=== PATIENT | male | born 1960 | race Caucasian/White ===

== ENCOUNTER 2016-11-04 16:21 | Emergency (ER) | payer OTHER ==
[~2016-11-04] VITALS: Ht 175.3 cm; Wt 88.5 kg
[~2016-11-04 16:21] MED LIST: AMLODIPINE BESY10 M1 PO; ASPIRIN EC81 M1 PO; CARVEDILOL12.5 M1 PO; CITALOPRAM HBR20 MG PO; CYCLOBENZAPRINE10 M1 PO; GEMFIBROZIL600 MG PO; LISINOPRIL40 M1 PO; LYRICA25 M1 PO; METFORMIN HCL500 M3 PO; OXYCODONE HCL10 MG PO; OXYCODONE HCL5 M1 PO; PERCOCET 5-3251 EACH PO; PROTONIX40 M3 PO; TIZANIDINE HCL2 M1 PO; VESICARE10 MG PO
--- NOTE | 2016-11-04 18:17 | ED GENERAL ADULT ---
History of Present Illness General Chief Complaint: Lower Extremity Problems Stated Complaint: LEFT LEG PAIN Source: patient, old records Exam Limitations: no limitations Vital Signs & Intake/Output Vital Signs & Intake/Output Vital Signs Date Time Temp Pulse Resp B/P Pulse O2 O2 Flow FiO2 Ox Delivery Rate 11/04 2017 98.0 72 18 150/80 97 Room Air 11/04 1929 98.7 75 16 149/101 98 Room Air 11/04 1630 97.4 93 16 120/74 96 Room Air ED Intake and Output 11/05 0000 11/04 1200 Intake Total 1000 Output Total Balance 1000 Intake, IV 1000 Patient 195 lb Weight Allergies Coded Allergies: NO KNOWN ALLERGIES (12/14/14) Reconcile Medications Amlodipine Besylate (Amlodipine) 10 MG TABLET 1 TAB PO DAILY BP (Reported) Aspirin (Ecotrin) 81 MG TABLET.DR 1 TAB PO DAILY HEART HEALTH (Reported) Carvedilol 12.5 MG TABLET 1 TAB PO BID HEART (Reported) Citalopram Hydrobromide (Citalopram HBr) 20 MG TABLET 1 TAB PO DAILY DEPRESSION (Reported) Fenofibrate Nanocrystallized (Fenofibrate) 145 MG TABLET 1 TAB PO DAILY CHOLESTEROL/TRIGLYCERIDES (Reported) Lisinopril 40 MG TABLET 1.5 TAB PO DAILY BP (Reported) Metformin Hydrochloride (Metformin HCl) 500 MG TAB 2 TAB PO BID DIABETES ( Reported) Oxycodone HCl 5 MG TABLET 1 TAB PO TID PRN pain Oxycodone HCl 5 MG TABLET 1 TAB PO Q6-8 PRN pain Pantoprazole Sodium 40 MG TABLET.DR 1 TAB PO DAILY AC ACID REFLUX (Reported) Pregabalin (Lyrica) 25 MG CAPSULE 1 CAP PO QPM PAIN (Reported) Solifenacin Succinate (Vesicare) 10 MG TABLET 1 TAB PO DAILY BLADDER ( Reported) Tamsulosin HCl 0.4 MG CAP.ER.24H 1 CAP PO DAILY PROSTATE (Reported) Tizanidine HCl 2 MG TABLET 1 TAB PO Q8P PRN PAIN (Reported) Triage Note: PT STATES THAT HE HAS HISTORY OF SCIATICA AND HE HAS APPOINTMENT FRIDAY WITH HIS MD, PT RAN OUT OF PERCET, HAS MRI SCHEDULED FOR TOMORROW Triage Nurses Notes Reviewed? yes HPI: Patient is a 55-year-old presents complaining of severe left low back pain radiating down his left lower extremity and nausea and vomiting. Severe back pain x 2 months, has been seeing a specialist at [facility]. Has an appointment for an MRI tomorrow and another appointment with his pain specialist on Friday. Patient reports he received injections from the pain specialist approximately 2 weeks ago which exacerbated his pain. Pain is sharp, severe, worsens with movements. Patient was previously placed on medrol dose susan with no improvement. Taking oxycodone with moderate relief, ran out of the medication last week. Had dysuria 1-2 weeks ago, placed on an antibiotic by his primary doctor for a urinary tract infection last week(nitrofurantoin). Today began with nausea and vomiting. Vomited multiple times today. Denies fevers, incontinence, abdominal pain. (CARINE MCGUIRE) Past History Travel History Traveled to [place] past 21 day No Medical History Any Pertinent Medical History? 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 No (CARINE MCGUIRE) Review of Systems Review of Systems Constitutional: Denies: chills, fever. EENTM: Reports: no symptoms. Respiratory: Denies: cough, short of breath. Cardiovascular: Denies: chest pain. GI: Reports: nausea, vomiting. Denies: abdominal pain. Genitourinary: Reports: dysuria (last week, resolved). Denies: hematuria. Musculoskeletal: Reports: see HPI, back pain (chronic, unchanged). Skin: Reports: no symptoms. Neurological/Psychological: Denies: numbness, paresthesia. Hematologic/Endocrine: Denies: bruising, bleeding. Immunologic/Allergic: Denies: splenectomy. (CARINE MCGUIRE) Physical Exam Physical Exam General Appearance: alert, awake Head: atraumatic, normal appearance Eyes: Bilateral: normal appearance, PERRL, EOMI. Ears, Nose, Throat: normal pharynx, normal ENT inspection, hearing grossly normal Neck: normal inspection, supple, full range of motion Respiratory: normal breath sounds, chest non-tender, no respiratory distress, lungs clear Cardiovascular: regular rate/rhythm Gastrointestinal: normal bowel sounds, soft, non-tender Back: no vertebral tenderness, tenderness left lumbar paraspinal in the area of L4 Extremities: normal inspection, normal capillary refill, normal range of motion Neurologic/Psych: no motor/sensory deficits, awake, alert, oriented x 3 Skin: intact, normal color, warm/dry Core Measures ACS in differential dx? No CVA/TIA Diagnosis: No Severe Sepsis Present: No Septic Shock Present: No (LINDSEY LACEY,CARINE) Progress Differential Diagnoses I considered the following diagnoses in my evaluation of the patient: chronic back pain, UTI, pyelo, opiate withdrawal, electrolyte abnormality, dehydration, MECHE, cauda equina, transverse myelitis, scitica, herniated disc Plan of Care: Orders Procedure Date/time Status CULTURE,URINE 11/04 2022 Active Add-on Test (ER Only) 11/04 2021 Active URINALYSIS 11/04 1824 Complete COMPREHENSIVE METABOLIC PANEL 11/04 1824 Complete CBC WITHOUT DIFFERENTIAL 11/04 1824 Complete Laboratory Tests 11/04/162022: Urine Color YEL, Urine Clarity CLEAR, Urine pH 6.0, Ur Specific Crenshaw 1.025, Urine Protein 100 H, Urine Ketones TRACE H, Urine Nitrite NEG, Urine Bilirubin NEG, Urine Urobilinogen 0.2, Ur Leukocyte Esterase NEG, Ur Microscopic SEDIMENT EXAMINED, Urine RBC 1-3, Urine WBC 1-3 H, Ur Epithelial Cells RARE, Urine Mucus FEW, Urine Hemoglobin TRACE-INTACT H, Urine Glucose 100 H 11/04/161854: Anion Gap 17 H, Estimated GFR 42 L, BUN/Creatinine Ratio 5.9 L, Glucose 134 H, Calcium 10.3 H, Total Bilirubin 0.9, AST 26, ALT 32, Alkaline Phosphatase 58 , Total Protein 7.4, Albumin 4.5, Globulin 2.9, Albumin/Globulin Ratio 1.6, CBC w Diff NO MAN DIFF REQ, RBC 4.73, MCV 84.6, MCH 28.8, RDW 14.0, MPV 8.6, Gran % 68.3, Lymphocytes % 24.6, Monocytes % 5.7, Eosinophils % 0.9, Basophils % 0.5, Absolute Granulocytes 7.9 H, Absolute Lymphocytes 2.9, Absolute Monocytes 0.7 H, Absolute Eosinophils 0.1, Absolute Basophils 0.1, PUBS MCHC 34.1 Microbiology 11/04 2022 URINE ROUT: Urine Culture - RECD 1949: Nausea and vomiting resolved. Patient tolerating oral fluids. Discussed results of labs with patient. Patient reports minimal improvement in his back pain. Additional pain medication ordered. Patient scheduled for MRI tomorrow for his chronic back pain and has an appointment with his ceramic painter on Friday. As patient is tolerating oral intake, appears stable to follow up closely with his primary doctor regarding the MECHE. Instructed to avoid anti-inflammatories. Patient currently on nitrofurantoin for UTI, does not appear to require antibiotic change. (CARINE MCGUIRE) Initial ED EKG: none (CARINE MCGUIRE) Departure Departure Time of Disposition: 1956 Disposition: HOME OR SELF CARE Condition: Stable Clinical Impression Primary Impression: Acute exacerbation of chronic low back pain Secondary Impressions: Acute kidney injury Referrals: YOLA SINGH MD (PCP/Family) Referred to [facility] as new patient No Additional Instructions: Drink plenty fluids. Follow-up with your primary doctor this week for further evaluation of her kidneys. Call in the morning for appointment to be seen this week. Avoid any anti-inflammatory medications including ibuprofen (Motrin/Advil ) and naproxen (Aleve) due to the blood work related to your kidneys. Return to emergency department if unable to stay hydrated, numbness, weakness, incontence, or worsening of symptoms. Departure Forms: Customer Survey General Discharge Information Prescriptions: Current Visit Scripts Oxycodone HCl 1 TAB PO Q6-8 PRN pain #12 TAB (CARINE MCGUIRE) PA/SEAT COVER MAKER Co-Sign Statement Statement: ED Attending supervision documentation- [] I saw and evaluated the patient. I have also reviewed all the pertinent lab results and diagnostic results. I agree with the findings and the plan of care as documented in the PA's/SEAT COVER MAKER's documentation. [x] I have reviewed the ED Record and agree with the PA's/SEAT COVER MAKER's documentation. [] Additions or exceptions (if any) to the PAs/SEAT COVER MAKER's note and plan are summarized below: [] (SARAHI CLANCY,YANNA Walden) Critical Care Note Critical Care Note Critical Care Time: non-applicable (CARINE MCGUIRE)
[2016-11-04] MEDS ORDERED: FENOFIBRATE145 M1 PO (18:25)
[2016-11-04] MEDS ORDERED: TAMSULOSIN HCL0.4 M1 PO (18:28)
[2016-11-04 19:07] LABS: ABSOLUTE BASOPHIL COUNT 0.1 /CUMM (0.0-0.2); ABSOLUTE EOSINOPHIL COUNT 0.1 /CUMM (0.0-0.7); ABSOLUTE GRANULOCYTE CT 7.9 /CUMM (1.4-6.5); ABSOLUTE LYMPH COUNT 2.9 /CUMM (1.2-3.4); ABSOLUTE MONOCYTE COUNT 0.7 /CUMM (0.10-0.60); BASOPHIL % 0.5 % (0.0-2.0); EOSINOPHIL % 0.9 % (0-5); GRANULOCYTE % 68.3 % (42.2-75.2); MEAN CORPUSCULAR HGB 28.8 PG (27.0-31.0); MEAN CORPUSCULAR HGB CONC 34.1 G/DL (33.0-37.0); MEAN CORPUSCULAR VOLUME 84.6 FL (80.0-94.0); MEAN PLATELET VOLUME 8.6 FL (7.4-10.4); PLATELET COUNT 368 /CUMM (130-400); RED BLOOD CELL CT 4.73 /CUMM (4.70-6.10); WHITE BLOOD CELL COUNT 11.6 /CUMM (4.8-10.8)
[2016-11-04] MEDS ORDERED: OXYCODONE HCL5 M1 PO (20:02)
[2016-11-04 20:18] VITALS: BP 150/80
[2016-11-05] MEDS ORDERED: NITROFURANTOIN100 M6 PO (14:19)
[2016-11-05] MEDS ORDERED: DILAUDID2 M1 PO (16:35)
[2016-11-05] MEDS ORDERED: VALIUM5 M2 PO (16:35)
== END 2016-11-04 20:24 ==
LOC: ERH 16:21
PROVIDERS: Physician Assistant
DX: G89.29 Other chronic pain (principal); M54.5 Low back pain; N17.9 Acute kidney failure, unspecified; R11.2 Nausea with vomiting, unspecified
CPT/HCPCS: 81001; 87086; 96361; 96374; 96375; 96376; J2405

== ENCOUNTER 2016-11-05 13:52 | Emergency (ER) | payer OTHER ==
[~2016-11-05] VITALS: Ht 175.3 cm; Wt 88.5 kg
[~2016-11-05 13:52] MED LIST changes: +FENOFIBRATE145 M1 PO; +TAMSULOSIN HCL0.4 M1 PO
--- NOTE | 2016-11-05 14:18 | ED NECK/BACK PAIN COMPLAINT ---
History of Present Illness General Chief Complaint: Low Back Pain/Injury Stated Complaint: LOWER BACK PAIN Source: patient, old records, EMS Exam Limitations: no limitations Vital Signs & Intake/Output Vital Signs & Intake/Output Vital Signs Date Time Temp Pulse Resp B/P Pulse O2 O2 Flow FiO2 Ox Delivery Rate 11/05 1637 96.9 89 18 119/70 98 Room Air 11/05 1505 98.0 65 18 135/65 96 11/05 1455 18 96 Room Air 11/05 1439 84 26 134/82 98 Room Air 11/05 1355 97.6 80 24 143/77 99 Room Air Allergies Coded Allergies: NO KNOWN ALLERGIES (12/14/14) Reconcile Medications Amlodipine Besylate (Amlodipine) 10 MG TABLET 1 TAB PO DAILY BP (Reported) Aspirin (Ecotrin) 81 MG TABLET.DR 1 TAB PO DAILY HEART HEALTH (Reported) Carvedilol 12.5 MG TABLET 1 TAB PO BID HEART (Reported) Citalopram Hydrobromide (Citalopram HBr) 20 MG TABLET 1 TAB PO DAILY DEPRESSION (Reported) Diazepam (Valium) 5 MG TABLET 1 TAB PO TIDPRN PRN SPASM Fenofibrate Nanocrystallized (Fenofibrate) 145 MG TABLET 1 TAB PO DAILY CHOLESTEROL/TRIGLYCERIDES (Reported) Hydromorphone HCl (Dilaudid) 2 MG TABLET 1 TAB PO 4XDP PRN PAIN Lisinopril 40 MG TABLET 1.5 TAB PO DAILY BP (Reported) Metformin Hydrochloride (Metformin HCl) 500 MG TAB 2 TAB PO BID DIABETES ( Reported) Nitrofurantoin Monohyd/M-Cryst (Nitrofurantoin Navajo-Mcr 100 MG) 100 MG CAPSULE 1 CAP PO BID ANTIBIOTIC, INFECTION (Reported) Oxycodone HCl 5 MG TABLET 1 TAB PO TID PRN pain Oxycodone HCl 5 MG TABLET 1 TAB PO Q6-8 PRN pain Pantoprazole Sodium 40 MG TABLET.DR 1 TAB PO DAILY AC ACID REFLUX (Reported) Pregabalin (Lyrica) 25 MG CAPSULE 1 CAP PO QPM PAIN (Reported) Solifenacin Succinate (Vesicare) 10 MG TABLET 1 TAB PO DAILY BLADDER ( Reported) Tamsulosin HCl 0.4 MG CAP.ER.24H 1 CAP PO DAILY PROSTATE (Reported) Tizanidine HCl 2 MG TABLET 1 TAB PO Q8P PRN PAIN (Reported) Triage Note: BIBA FOR PAIN 10 OUT OF 10 IN BUTTOCKS, EXTENDING DOWN TO FOOT. PT STATES HE WAS HERE IN THE ED LAST NIGHT FOR SAME COMPLAINT. PT ALSO CURRENTLY BEING TREATED WITH PO ANTIBIOTICS FOR KIDNEY INFECTION. HE STATES HE WAS NAUSEATED TODAY AND NOT TAKING IN ANYTHING BY MOUTH INCLUDING HIS ANTIBIOTIC. PT STATES WHEN HE WAS DISCHARGED YESTERDAY HE WAS TOLD TO RETURN TO THE ED FOR NAUSEA OR WORSENING SYMPTOMS. PT MOANING IN PAIN. SKIN WARM AND DRY. Triage Nurses Notes Reviewed? yes HPI: Patient is a 55-year-old presents complaining of severe left low back pain radiating down his left lower extremity and nausea and vomiting. He was seen last night for same, treated with IV morphine, also noted to have acute kidney injury and has been on antibiotics for a kidney infection, Macrobid. Severe back pain x 2 months after he received 3 lumbar epidural steroid injections, he had a similar episode of severe exacerbation of pain several years ago after receiving a lumbar epidural steroid injection as well which took several months to recover. Has been seeing a specialist at [facility]. Has an later today for an MRI tomorrow and another appointment with his pain specialist on Friday. Pain is sharp, severe, worsens with movements. Patient was previously placed on medrol dose susan with no improvement. Taking oxycodone with minimal relief, ran out of the medication last week, got another prescription for 12 more last evening, states he took 3 of these without any relief which is why he called a neighbor to bring him here to the hospital . Had dysuria 1-2 weeks ago, placed on an antibiotic by his primary doctor for a urinary tract infection last week( nitrofurantoin). Yesterday began with nausea and vomiting, nausea continued but no vomiting today, he states he stopped drinking water because he feels as though he may vomit if he drinks water. He was noted to have acute kidney injury yesterday as well with a creatinine of 1.7 . He denies any weakness or numbness in the extremity. Denies fevers, incontinence, abdominal pain. (CARINE RODRIGUEZ) Past History Travel History Traveled to [place] past 21 day No Medical History Any Pertinent Medical History? 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 No (CARINE RODRIGUEZ) Review of Systems Review of Systems Constitutional: Reports: see HPI. Eyes: Reports: no symptoms. Ears, Nose, Throat, Mouth: Reports: no symptoms. Respiratory: Reports: no symptoms. Cardiovascular: Reports: no symptoms. Gastrointestinal/Abdominal: Reports: no symptoms. Musculoskeletal: Reports: see HPI. Skin: Reports: no symptoms. Neurological/Psychological: Reports: no symptoms. All Other Systems: Reviewed and Negative (CARINE RODRIGUEZ) Physical Exam Physical Exam Neck: normal inspection, supple Comments: General Appearance: alert, awake Head: atraumatic, normal appearance Eyes: Bilateral: normal appearance, PERRL, EOMI. Ears, Nose, Throat: normal pharynx, normal ENT inspection, hearing grossly normal Neck: normal inspection, supple, full range of motion Respiratory: normal breath sounds, chest non-tender, no respiratory distress, lungs clear Cardiovascular: regular rate/rhythm Gastrointestinal: normal bowel sounds, soft, non-tender Back: no vertebral tenderness, tenderness in the sciatic neck region on the left side. There is no midline vertebral tenderness, range of motion is severely limited due to pain. No significant muscle spasm is noted Extremities: normal inspection, normal capillary refill, normal range of motion Neurologic/Psych: no motor/sensory deficits, awake, alert, oriented x 3. Positive straight leg raise on the left Skin: intact, normal color, warm/dry (CARINE RODRIGUEZ) Progress Differential Diagnosis: AAA, aortic dissection, C spine injury, carotid dissection, cauda equina syn, herniated disc, myofascial strain, pyelo/UTI, sciatica, spinal cord inj, thoracic outlet syn, T/L spine injury, ureterolithiasis Plan of Care: Orders Procedure Date/time Status Saline Lock 11/05 1404 Active COMPREHENSIVE METABOLIC PANEL 11/05 1404 Complete CBC WITHOUT DIFFERENTIAL 11/05 1404 Complete Current Medications Sig/Charlene Start time Last Medication Dose Stop Time Status Admin Morphine Sulfate 4 MG ONCE ONE 11/05 1415 CAN (Morphine) 11/05 1416 Laboratory Tests 11/05/16 1430: Anion Gap 18 H, Estimated GFR > 60, BUN/Creatinine Ratio 9.2, Glucose 160 H, Calcium 9.6, Total Bilirubin 1.0, AST 19, ALT 37, Alkaline Phosphatase 58, Total Protein 7.0, Albumin 4.3, Globulin 2.7, Albumin/Globulin Ratio 1.6, CBC w Diff NO MAN DIFF REQ, RBC 4.63 L, MCV 81.9, MCH 28.6, RDW 13.3, MPV 8.5, Gran % 73.0 , Lymphocytes % 21.9, Monocytes % 4.2, Eosinophils % 0.4, Basophils % 0.5, Absolute Granulocytes 7.0 H, Absolute Lymphocytes 2.1, Absolute Monocytes 0.4, Absolute Eosinophils 0, Absolute Basophils 0, PUBS MCHC 35.0 Comments: Patient treated with 1 mg of Dilaudid IV, he continues to have severe pain, yelling in pain in the room, after 20 minutes he was given another milligram of Dilaudid IV and 2 g of IV Valium. On reevaluation he has much improved symptoms. His laboratory values are unremarkable, his acute kidney injury from yesterday has resolved. Patient reevaluated, pain started to come back again and he is given 0.5 mg Dilaudid IV, he was unable to walk a little bit in the emergency department, he is requesting to be discharged home so he can follow-up with his MRI tonight and follow up with his spine surgeon on Friday. He will return with worsening concerns (CARINE RODRIGUEZ) Departure Departure Disposition: HOME OR SELF CARE Condition: Stable Clinical Impression Primary Impression: Back pain Qualifiers: Back pain location: low back pain Chronicity: chronic Back pain laterality: left Sciatica presence: with sciatica Sciatica laterality: sciatica of left side Qualified Codes: M54.42 - Lumbago with sciatica, left side; G89.29 - Other chronic pain Secondary Impressions: Sciatica of left side Referrals: YOLA SINGH MD (PCP/Family) Additional Instructions: Take medications for pain, spasm and inflammation as needed. Rest, warm compresses, gentle stretching. Follow-up with your MRI this evening and with her spine surgeon on Friday as scheduled Watch for worsening symptoms of pain, numbness or weakness down the leg, return with any concerns. Departure Forms: Customer Survey General Discharge Information Prescriptions: Current Visit Scripts Hydromorphone HCl (Dilaudid) 1 TAB PO 4XDP PRN PAIN #12 TAB Diazepam (Valium) 1 TAB PO TIDPRN PRN SPASM #12 TAB (CARINE RODRIGUEZ) PA/RELEASE SPECIALIST Co-Sign Statement Statement: ED Attending supervision documentation- [] I saw and evaluated the patient. I have also reviewed all the pertinent lab results and diagnostic results. I agree with the findings and the plan of care as documented in the PA's/RELEASE SPECIALIST's documentation. x I have reviewed the ED Record and agree with the PA's/RELEASE SPECIALIST's documentation. [] Additions or exceptions (if any) to the PAs/RELEASE SPECIALIST's note and plan are summarized below: [] (TRA CLANCY,CATY)
[2016-11-05] MEDS ORDERED: NITROFURANTOIN100 M6 PO (14:19)
[2016-11-05 14:40] LABS: ABSOLUTE BASOPHIL COUNT 0 /CUMM (0.0-0.2); ABSOLUTE EOSINOPHIL COUNT 0 /CUMM (0.0-0.7); ABSOLUTE LYMPH COUNT 2.1 /CUMM (1.2-3.4); ABSOLUTE MONOCYTE COUNT 0.4 /CUMM (0.10-0.60); BASOPHIL % 0.5 % (0.0-2.0); EOSINOPHIL % 0.4 % (0-5); HEMATOCRIT 37.9 % (42-52); MEAN CORPUSCULAR HGB 28.6 PG (27.0-31.0); MEAN CORPUSCULAR VOLUME 81.9 FL (80.0-94.0); MEAN PLATELET VOLUME 8.5 FL (7.4-10.4); PLATELET COUNT 333 /CUMM (130-400); RBC DISTRIBUTION WIDTH 13.3 % (11.5-14.5); RED BLOOD CELL CT 4.63 /CUMM (4.70-6.10); WHITE BLOOD CELL COUNT 9.6 /CUMM (4.8-10.8)
[2016-11-05] MEDS ORDERED: DILAUDID2 M1 PO (16:35)
[2016-11-05] MEDS ORDERED: VALIUM5 M2 PO (16:35)
[2016-11-05 16:37] VITALS: BP 119/70
== END 2016-11-05 16:42 ==
LOC: ERH 13:52
PROVIDERS: Physician Assistant Surgical
DX: M54.42 Lumbago with sciatica, left side (principal); R11.2 Nausea with vomiting, unspecified
CPT/HCPCS: 96374; 96375; 96376; J2405; J3360

== ENCOUNTER 2017-02-23 15:58 | Emergency (ER) | payer OTHER ==
[~2017-02-23] VITALS: Ht 175.3 cm; Wt 83.9 kg
[~2017-02-23 15:58] MED LIST changes: +DILAUDID2 M1 PO; +NITROFURANTOIN100 M6 PO; +VALIUM5 M2 PO
--- NOTE | 2017-02-23 18:24 | ED ANKLE/FOOT INJURY COMPLAINT ---
History of Present Illness General Chief Complaint: Foot or Ankle Injury Stated Complaint: SIB WALK IN, LEFT FOOT GREAT TOE INFECTION Source: patient Exam Limitations: no limitations Vital Signs & Intake/Output Vital Signs & Intake/Output Vital Signs Date Time Temp Pulse Resp B/P B/P Pulse O2 O2 Flow FiO2 Mean Ox Delivery Rate 02/24 1932 97.6 78 22 134/80 98 02/23 1644 98.2 88 20 152/83 98 Room Air Allergies Coded Allergies: No Known Allergies (02/23/17) Reconcile Medications Amlodipine Besylate 10 MG TABLET 1 TAB PO DAILY HTN (Reported) Aspirin (Ecotrin*) 81 MG TABLET.DR 1 TAB PO DAILY HEART (Reported) Carvedilol 12.5 MG TABLET 1 TAB PO BID HEART (Reported) Citalopram Hydrobromide (Citalopram HBr) 20 MG TABLET 1 TAB PO DAILY DEPRESSION (Reported) Diazepam (Valium) 5 MG TABLET 1 TAB PO TIDPRN PRN SPASM Fenofibrate Nanocrystallized (Fenofibrate) 145 MG TABLET 1 TAB PO DAILY CHOLESTEROL/TRIGLYCERIDES (Reported) Hydromorphone HCl (Dilaudid) 2 MG TABLET 1 TAB PO 4XDP PRN PAIN Lisinopril 40 MG TABLET 1.5 TAB PO DAILY BP (Reported) Metformin HCl 500 MG TABLET 1 TAB PO TID DM (Reported) Nitrofurantoin Monohyd/M-Cryst (Nitrofurantoin [place]-Mcr 100 MG) 100 MG CAPSULE 1 CAP PO BID ANTIBIOTIC, INFECTION (Reported) Oxycodone HCl 5 MG TABLET 1 TAB PO TID PRN pain Oxycodone HCl 5 MG TABLET 1 TAB PO Q6-8 PRN pain Pantoprazole Sodium (Protonix) 40 MG TABLET.DR 1 TAB PO DAILY GERD (Reported) Pregabalin (Lyrica) 25 MG CAPSULE 1 CAP PO QPM PAIN (Reported) Solifenacin Succinate (Vesicare) 10 MG TABLET 1 TAB PO DAILY BLADDER ( Reported) Tamsulosin HCl 0.4 MG CAP.ER.24H 1 CAP PO DAILY PROSTATE (Reported) Tizanidine HCl 2 MG TABLET 1 TAB PO Q8P PRN PAIN (Reported) Triage Note: TRIAGE: PT TO ER C/C PAIN TO L GREAT TOE AND ?INFECTION S/P FALL 4 DAYS AGO. STATES FELL GOING DOWN THE STAIRS BENDING THE TOE BACK. HAS DRIED BLOOD TO TOENAIL. WAITED TO COME FOR EVAL UNTIL HE FELT SAFE LEAVING THE RESIDENCE, WAS FEARFUL OF FALLING AGAIN. WAS SEEN AT [facility] TODAY AND WAS REFERRED TO ER FOR "ANTIBIOTIC INJECTIONS POSSIBLY WITH A PUMP". PT HAD XRAY DONE AT [facility] AND HAS PAPERWORK WITH CODE FOR PROVIDER TO REVIEW XRAYS. PAPERS LEFT WITH CHART. Triage Nurses Notes Reviewed? yes HPI: Patient presents for evaluation of left great toe pain and infection infection after taking a misstep 3 days ago. He states he think he bent it backwards and since has had constant pain, swelling and redness and pain. Pain gets worse if he tries to ambulate. Patient denies any associated fever or cold symptoms. He was evaluated in walk-in center prior to arrival and was told he needed to go to the emergency department for IV antibiotics. He states an x-ray was done that was normal. Past History Travel History Traveled to [place] past 21 day No Medical History Any Pertinent Medical History? 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 No Review of Systems Review of Systems Constitutional: Reports: no symptoms. EENTM: Reports: no symptoms. Respiratory: Reports: no symptoms. Cardiovascular: Reports: no symptoms. GI: Reports: no symptoms. Genitourinary: Reports: no symptoms. Musculoskeletal: Reports: no symptoms. Skin: Reports: see HPI. Neurological/Psychological: Reports: no symptoms. Hematologic/Endocrine: Reports: no symptoms. Immunologic/Allergic: Reports: no symptoms. All Other Systems: Reviewed and Negative Physical Exam Physical Exam Leg/Knee/Thigh Left: see below Comments: Gen.: Well-nourished, well-developed, no acute respiratory distress. Head: Normocephalic, atraumatic. Eyes: Normal inspection bilaterally Ears: Normal inspection bilaterally Nose: Normal inspection, nasal cannula in place Throat/mouth : Moist mucosa Neck: Supple, full range of motion, no goiter Heart: Regular rate and rhythm Lungs: Quiet respirations Back: Normal range of motion Extremities: Left foot: Mild erythema and soft tissue swelling of the left great toe with blood crusted over the toenail. Abrasions present. Neurologic: Cranial nerves grossly intact, speech is clear Skin: warm and dry Psychiatric: Calm, cooperative, no apparent delusions or hallucinations Progress Differential Diagnosis: cellulitis, fracture, dislocation, sprain, contusion Plan of Care: Current Medications Sig/Charlene Start time Last Medication Dose Stop Time Status Admin Ampicillin Sodium/ 3,000 MG ONCE ONE 02/23 1830 UNVr Sulbactam Sodium 02/23 1859 (Unasyn) Sodium Chloride 100 ML (Normal Saline 0.9%) Comments: 02/23/2017 7:45:37 PM I have reviewed this patient's x-rays and his fracture is along the plantar aspect of the distal first phalanx. His wound is on the dorsal aspect of the toe so I doubt open fracture. He has been treated with a dose of IV Unasyn and I will provide him Augmentin as an outpatient. A dressing has been placed on his toe and his first and second toes johnnie taped. I will provide pain medication as well. Departure Departure Disposition: HOME OR SELF CARE Condition: Stable Clinical Impression Primary Impression: Cellulitis of toe of left foot Secondary Impressions: Fracture of distal phalanx of toe of left foot Referrals: NICA CLANCY,RYANNE SINGH MD,[facility] (PCP/Family) Additional Instructions: Daily gentle cleansing and dressing changes and then johnnie tape your toes together as discussed. Augmentin as prescribed. Tramadol as needed for pain. Follow-up with your certified master safecracker for reevaluation of the toe infection in 48 hours. You will also need follow-up of the toe fracture. If your certified master safecracker does not feel comfortable managing the toe fracture then follow-up with the sales account specialist listed. Notify your primary care doctor of this emergency department visit and treatment plan. Return if unable to follow up as outlined or any concerns or sudden worsening. Thank you for choosing the [facility] for your care. It was a pleasure to serve you today. Juvenal Silverio M.D. [facility] Departure Forms: Customer Survey General Discharge Information Prescriptions: Current Visit Scripts Augmentin (Augmentin 500-125 Tablet) 1 TAB PO TID #30 TAB Tramadol HCl (Ultram) 1-2 TAB PO Q6P PRN PAIN #20 TAB
[2017-02-23 19:32] VITALS: BP 134/80
[2017-02-23] MEDS ORDERED: AUGMENTIN 500-1 EACH PO (19:51)
[2017-02-23] MEDS ORDERED: ULTRAM50 M1 PO (19:51)
== END 2017-02-23 20:00 ==
LOC: ERH 15:58
DX: S92.402A Displaced unspecified fracture of left great toe, initial encounter for closed fracture (principal); L03.032 Cellulitis of left toe; X58.XXXA Exposure to other specified factors, initial encounter; Y92.9 Unspecified place or not applicable; Y93.9 Activity, unspecified